=== PATIENT | female | born 1995 | race Caucasian/White ===

== ENCOUNTER 2018-01-10 00:03 | Emergency (ER) | payer OTHER ==
--- NOTE | 2018-01-10 00:33 | EDPHY ---
H & P Stated Complaint: 4 tequila shots tonight. +GLF. Unknown LOC. Received zofran COMPENSATION ANALYST. BGL 80's Time Seen by Provider: 01/10/18 00:07 HPI/ROS: Chief Complaint: Alcohol intoxication, fall HPI: 22-year-old woman was out drinking with friends tonight. While walking home she tripped and fell and struck her face on the sidewalk. Bystanders deny loss of consciousness. She is complaining of some mild pain in her right face. No neck pain. No numbness or weakness. She has been ambulating unassisted. She has vomited several times both prior to falling and after. ROS: 10 systems were reviewed and were negative except those elements noted in the HPI. PMH: Denies Social History: No smoking, occasional alcohol Family History: non-contributory Physical Exam: Gen: Awake, Alert, Airway Intact HEENT: Head: Atraumatic Eyes: PERRLA, EOMI Nose: No epistaxis Mouth: Normal dentition, Airway patent Face: Patient has an abrasion over the right zygoma with mild soft tissue swelling. No zygomatic deformity or crepitus Neck: non-tender, no stepoff, Full ROM without pain Chest: non-tender, lungs CTA Heart: normal heart tones Abd: soft, non-tender, atraumatic Pelvis: non-tender, stable to AP and Lateral compression Back: atraumatic, no midline tenderness Ext: atramatic, full ROM Skin: no rash Neuro: CN II-XII intact, Strength 5/5 in all extremities, sensation intact in all extremities - Personal History LMP (Females 10-55): 8-14 Days Ago Current Tetanus Diphtheria and Acellular Pertussis (TDAP): Yes - Medical/Surgical History Hx Asthma: No Hx Chronic Respiratory Disease: No Hx Diabetes: No Hx Cardiac Disease: No Hx Renal Disease: No Hx Cirrhosis: No Hx Alcoholism: No Hx HIV/AIDS: No Hx Splenectomy or Spleen Trauma: No Other PMH: depression - Social History Smoking Status: Heavy smoker Constitutional: Initial Vital Signs Temperature (C) 36.4 C 01/10/18 00:08 Heart Rate 79 01/10/18 00:08 Respiratory Rate 16 01/10/18 00:08 Blood Pressure 110/80 01/10/18 00:08 O2 Sat (%) 98 01/10/18 00:08 O2 Delivery Mode Room Air Allergies/Adverse Reactions: No Known Allergies Allergy (Unverified 01/10/18 00:07) Home Medications: Medication Instructions Recorded Hydroxyzine HCl 01/10/18 Zoloft 50mg (*) 01/10/18 Medical Decision Making ED Course/Re-evaluation: Patient is awake alert. Is without complaint. No headache. No nausea or vomiting. She is ambulating unassisted emergency department. Plan will be for discharge with follow-up with primary care physician, head injury precautions have been provided. She will return for any concerns. Departure - Departure Disposition: Home, Routine, Self-Care Clinical Impression: Alcohol intoxication Condition: Good Instructions: Alcohol Intoxication (ED) Referrals: Patient,NotPresent [Primary Care Provider] - As per Instructions
[2018-01-10] MEDS ORDERED: OXYMETAZOLINE 30 ML NASAL SPRAY ONE (02:11)
[2018-01-10 02:30] VITALS: BP 100/55
== END 2018-01-10 02:30 | disposition home or self-care (01) ==
DX: F10.920 Alcohol use, unspecified with intoxication, uncomplicated (principal)